=== PATIENT | female | born 1980 | race Caucasian/White ===

== ENCOUNTER 2016-11-29 10:02 | Emergency (ER) | payer SELFPAY ==
[2016-11-29] VITALS (7 sets, daily range): BP systolic 138–155; BP diastolic 57–95; PULSE 62–77; RESP 16–18; TEMP 97.8–98; O2SAT 99–100
[~2016-11-29] VITALS: Ht 160 cm; Wt 60.0 kg
[~2016-11-29 10:02] MED LIST: DARV PO
[2016-11-29] MEDS ORDERED: SODIUM CHLOR 0.9% 1000 ML INJ 1,000 ML IV ONE ×2 (10:47→13:00)
[2016-11-29] MEDS ORDERED: SODIUM CHLORIDE 0.9% FLUSH 10 ML FLUSH IVF PRN (11:00)
[2016-11-29 11:15] LABS: AUTOMATED NEUTROPHIL # 4.6 TH/MM3 (1.8-7.7); BASOPHIL # 0.1 TH/MM3 (0-0.2); BASOPHIL % 0.6 % (0.0-2.0); EOSINOPHIL # 0.1 TH/MM3 (0-0.4); EOSINOPHIL % 1.1 % (0.0-4.0); HEMATOCRIT 36.8 % (35.0-46.0); HEMO FLAGS DIFF FINAL; LYMPH % 35.2 % (9.0-44.0); LYMPHOCYTE # 2.9 TH/MM3 (1.0-4.8); MEAN CELL VOLUME 82.9 FL (80.0-100.0); MEAN CORPUSCULAR HEMOGLOBIN 28.2 PG (27.0-34.0); MONO % 7.2 % (0.0-8.0); NEUT % 55.9 % (16.0-70.0); PLATELET COUNT 231 TH/MM3 (150-450); RED BLOOD COUNT 4.43 MIL/MM3 (4.00-5.30); RED CELL DISTRIBUTION WIDTH 15.1 % (11.6-17.2); WHITE BLOOD COUNT 8.3 TH/MM3 (4.0-11.0)
[2016-11-29 11:25] LABS: PROTHROMBIN TIME - PATIENT 10.8 SEC (9.8-11.6)
[2016-11-29 11:31] LABS: ALT (GPT) 64 U/L (10-53); ANION GAP 8 MEQ/L (5-15); AST (GOT) 58 U/L (15-37); BICARBONATE 26.2 MEQ/L (21.0-32.0); BLOOD UREA NITROGEN 16 MG/DL (7-18); CHLORIDE 108 MEQ/L (98-107); GLOMERULAR FILTRATION RATE 90 ML/MIN (>89); MAGNESIUM 2.1 MG/DL (1.5-2.5); SODIUM (NA) 142 MEQ/L (136-145)
[2016-11-29 11:33] LABS: POTASSIUM 2.8 MEQ/L (3.5-5.1)
[2016-11-29 11:36] LABS: ALKALINE PHOSPHATASE 94 U/L (45-117); CREATINE KINASE 948 U/L (26-192); TOTAL BILIRUBIN ADULT 0.4 MG/DL (0.2-1.0)
[2016-11-29] MEDS ORDERED: POTASSIUM CHLORIDE 10 MEQ CONTROLLED RELEASE TAB PO ONE (11:45)
--- NOTE | 2016-11-29 11:51 | PD ---
HPI Chief Complaint: Altered Mental Status Time Seen by Provider: 10:50 Travel History International Travel<30 days: No Contact w/Intl Traveler<30days: No Traveled to known affect area: No History of Present Illness HPI Patient is a 36-year-old female brought to the emergency room by EMS for evaluation of altered mental status. As per EMS, patient was found in the bathroom of a hotel sleeping. Patient reports that for the past 3 days, been using IV methamphetamines. Patient reports that she went to eat with her friends fell asleep in the bathroom, patient unsure what happened. Patient denies any headache or dizziness, denies any chest pain or shortness of breath. Patient denies any suicidal or homicidal ideations at this time. [facility] Past Medical History Medical History: Denies Significant Hx ?: Unknown LMP: UNKNOWN Past Surgical History Surgical History: No Previous Surgery Social History Alcohol Use: Yes Tobacco Use: Yes Substance Use: Yes Allergies-Medications (Allergen,Severity, Reaction): Coded Allergies: No Known Allergies (Verified , 11/29/16) Reported Meds & Prescriptions Reported Meds & Active Scripts Active No Active Prescriptions or Reported Medications Review of Systems ROS Limitations: Altered Mental Status General / Constitutional: No: Fever Eyes: No: Visual changes HENT: No: Headaches Cardiovascular: No: Chest Pain or Discomfort Respiratory: No: Shortness of Breath Gastrointestinal: No: Abdominal Pain Genitourinary: No: Dysuria Musculoskeletal: No: Pain Skin: No Rash Neurologic: No: Weakness Psychiatric: No: Depression Endocrine: No: Polydipsia Hematologic/Lymphatic: No: Easy Bruising Physical Exam Narrative GENERAL: No acute distress SKIN: Focused skin assessment warm/dry. HEAD: Atraumatic. Normocephalic. EYES: Pupils equal and round. No scleral icterus. No injection or drainage. ENT: No nasal bleeding or discharge. Mucous membranes pink and moist. NECK: Trachea midline. No JVD. CARDIOVASCULAR: Regular rate and rhythm. No murmur appreciated. RESPIRATORY: No accessory muscle use. Clear to auscultation. Breath sounds equal bilaterally. GASTROINTESTINAL: Abdomen soft, non-tender, nondistended. Hepatic and splenic margins not palpable. MUSCULOSKELETAL: No obvious deformities. No clubbing. No cyanosis. No edema. Patient with track osborn to her bilateral ACs NEUROLOGICAL: Awake and alert. No obvious cranial nerve deficits. Motor grossly within normal limits. Normal speech. PSYCHIATRIC: Flat mood and affect Data Data Last Documented VS Vital Signs Date Time Temp Pulse Resp B/P (MAP) Pulse Ox O2 Delivery O2 Flow Rate FiO2 11/29/16 12:00 67 18 155/95 (115) 100 Nasal Cannula 2.00 11/29/16 10:05 97.8 Orders Orders Electrocardiogram (11/29/16 10:47) Complete Blood Count With Diff (11/29/16 10:47) Comprehensive Metabolic Panel (11/29/16 10:47) Magnesium (Mg) (11/29/16 10:47) Ckmb (Isoenzyme) Profile (11/29/16 10:47) Troponin I (11/29/16 10:47) Act Partial Throm Time (Ptt) (11/29/16 10:47) Prothrombin Time / Inr (Pt) (11/29/16 10:47) Chest, Single Ap (11/29/16 10:47) Blood Glucose (11/29/16 10:47) Ecg Monitoring (11/29/16 10:47) Iv Access Insert/Monitor (11/29/16 10:47) Oximetry (11/29/16 10:47) Sodium Chloride 0.9% Flush (Ns Flush) (11/29/16 11:00) Sodium Chlor 0.9% 1000 Ml Inj (Ns 1000 M (11/29/16 10:47) Drug Screen, Random Urine (11/29/16 10:47) Ct Brain W/O Iv Contrast(Rout) (11/29/16 11:13) CKMB (11/29/16 10:45) CKMB% (11/29/16 10:45) Potassium Chloride (Kcl) (11/29/16 11:45) Potassium Chlor 20 Meq Premix (Kcl 20 Me (11/29/16 11:45) Tylenol (Acetaminophen) (11/29/16 10:45) Alcohol (Ethanol) (11/29/16 10:45) Salicylates (Aspirin) (11/29/16 10:45) Sodium Chlor 0.9% 1000 Ml Inj (Ns 1000 M (11/29/16 13:00) Ckmb (Isoenzyme) Profile (11/29/16 12:58) Troponin I (11/29/16 12:58) CKMB (11/29/16 13:40) CKMB% (11/29/16 13:40) Labs Laboratory Tests Test 11/29/16 10:45 11/29/16 13:40 White Blood Count 8.3 TH/MM3 Red Blood Count 4.43 MIL/MM3 Hemoglobin 12.5 GM/DL Hematocrit 36.8 % Mean Corpuscular Volume 82.9 FL Mean Corpuscular Hemoglobin 28.2 PG Mean Corpuscular Hemoglobin Concent 34.0 % Red Cell Distribution Width 15.1 % Platelet Count 231 TH/MM3 Mean Platelet Volume 6.1 FL Neutrophils (%) (Auto) 55.9 % Lymphocytes (%) (Auto) 35.2 % Monocytes (%) (Auto) 7.2 % Eosinophils (%) (Auto) 1.1 % Basophils (%) (Auto) 0.6 % Neutrophils # (Auto) 4.6 TH/MM3 Lymphocytes # (Auto) 2.9 TH/MM3 Monocytes # (Auto) 0.6 TH/MM3 Eosinophils # (Auto) 0.1 TH/MM3 Basophils # (Auto) 0.1 TH/MM3 CBC Comment DIFF FINAL Differential Comment Prothrombin Time 10.8 SEC Prothromb Time International Ratio 1.0 RATIO Activated Partial Thromboplast Time 27.0 SEC Blood Urea Nitrogen 16 MG/DL Creatinine 0.73 MG/DL Random Glucose 92 MG/DL Total Protein 6.9 GM/DL Albumin 3.2 GM/DL Calcium Level 8.6 MG/DL Magnesium Level 2.1 MG/DL Alkaline Phosphatase 94 U/L Aspartate Amino Transf (AST/SGOT) 58 U/L Alanine Aminotransferase (ALT/SGPT) 64 U/L Total Bilirubin 0.4 MG/DL Sodium Level 142 MEQ/L Potassium Level 2.8 MEQ/L Chloride Level 108 MEQ/L Carbon Dioxide Level 26.2 MEQ/L Anion Gap 8 MEQ/L Estimat Glomerular Filtration Rate 90 ML/MIN Total Creatine Kinase 948 U/L 686 U/L Creatine Kinase MB 22.1 NG/ML 17.1 NG/ML Creatine Kinase MB % 2.3 % 2.5 % Troponin I LESS THAN 0.02 NG/ML LESS THAN 0.02 NG/ML Salicylates Level LESS THAN 1.7 MG/DL Acetaminophen Level LESS THAN 2.0 MCG/ML Ethyl Alcohol Level LESS THAN 3 MG/DL MDM Medical Decision Making Medical Screen Exam Complete: Yes Emergency Medical Condition: Yes Medical Record Reviewed: Yes Interpretation(s) EKG at 1101: Sinus bradycardia at 58 beats a minute, qt/qtc: 458/456, no acute st or t wave changes Vital Signs Date Time Temp Pulse Resp B/P (MAP) Pulse Ox O2 Delivery O2 Flow Rate FiO2 11/29/16 10:45 99 Room Air 11/29/16 10:05 Room Air 11/29/16 10:05 97.8 70 16 141/57 (85) 99 Differential Diagnosis Differential includes drug abuse, electrolyte abnormality, alcohol abuse Narrative Course Patient is a 36 year old female who presents to ER with EMS for evaluation of AMS. Patient is drowsy but alert and oriented x 3. Patient reports that she was on a drug binge for the past 3 days, reports using IV amphetamines. Patient denies suicidal or homicidal ideations, patient with no complaints at this time. Patient was placed on a cardiac care unit nurse upon arrival to the emergency room. Lab work including CT of the head ordered, drug screen, alcohol screen ordered. Vital Signs Date Time Temp Pulse Resp B/P (MAP) Pulse Ox O2 Delivery O2 Flow Rate FiO2 11/29/16 12:00 67 18 155/95 (115) 100 Nasal Cannula 2.00 11/29/16 11:00 62 16 138/78 (98) 99 Room Air 11/29/16 10:45 99 Room Air 11/29/16 10:05 Room Air 11/29/16 10:05 97.8 70 16 141/57 (85) 99 Laboratory Tests Test 11/29/16 10:45 11/29/16 13:40 White Blood Count 8.3 TH/MM3 (4.0-11.0) Red Blood Count 4.43 MIL/MM3 (4.00-5.30) Hemoglobin 12.5 GM/DL (11.6-15.3) Hematocrit 36.8 % (35.0-46.0) Mean Corpuscular Volume 82.9 FL (80.0-100.0) Mean Corpuscular Hemoglobin 28.2 PG (27.0-34.0) Mean Corpuscular Hemoglobin Concent 34.0 % (32.0-36.0) Red Cell Distribution Width 15.1 % (11.6-17.2) Platelet Count 231 TH/MM3 (150-450) Mean Platelet Volume 6.1 FL (7.0-11.0) Neutrophils (%) (Auto) 55.9 % (16.0-70.0) Lymphocytes (%) (Auto) 35.2 % (9.0-44.0) Monocytes (%) (Auto) 7.2 % (0.0-8.0) Eosinophils (%) (Auto) 1.1 % (0.0-4.0) Basophils (%) (Auto) 0.6 % (0.0-2.0) Neutrophils # (Auto) 4.6 TH/MM3 (1.8-7.7) Lymphocytes # (Auto) 2.9 TH/MM3 (1.0-4.8) Monocytes # (Auto) 0.6 TH/MM3 (0-0.9) Eosinophils # (Auto) 0.1 TH/MM3 (0-0.4) Basophils # (Auto) 0.1 TH/MM3 (0-0.2) CBC Comment DIFF FINAL Differential Comment Prothrombin Time 10.8 SEC (9.8-11.6) Prothromb Time International Ratio 1.0 RATIO Activated Partial Thromboplast Time 27.0 SEC (24.3-30.1) Blood Urea Nitrogen 16 MG/DL (7-18) Creatinine 0.73 MG/DL (0.50-1.00) Random Glucose 92 MG/DL (74-106) Total Protein 6.9 GM/DL (6.4-8.2) Albumin 3.2 GM/DL (3.4-5.0) Calcium Level 8.6 MG/DL (8.5-10.1) Magnesium Level 2.1 MG/DL (1.5-2.5) Alkaline Phosphatase 94 U/L (45-117) Aspartate Amino Transf (AST/SGOT) 58 U/L (15-37) Alanine Aminotransferase (ALT/SGPT) 64 U/L (10-53) Total Bilirubin 0.4 MG/DL (0.2-1.0) Sodium Level 142 MEQ/L (136-145) Potassium Level 2.8 MEQ/L (3.5-5.1) Chloride Level 108 MEQ/L (98-107) Carbon Dioxide Level 26.2 MEQ/L (21.0-32.0) Anion Gap 8 MEQ/L (5-15) Estimat Glomerular Filtration Rate 90 ML/MIN (>89) Total Creatine Kinase 948 U/L (26-192) 686 U/L (26-192) Creatine Kinase MB 22.1 NG/ML (0.5-3.6) 17.1 NG/ML (0.5-3.6) Creatine Kinase MB % 2.3 % (0.0-4.0) 2.5 % (0.0-4.0) Troponin I LESS THAN 0.02 NG/ML LESS THAN 0.02 NG/ML Salicylates Level LESS THAN 1.7 MG/DL Acetaminophen Level LESS THAN 2.0 MCG/ML Ethyl Alcohol Level LESS THAN 3 MG/DL (0-5) initial ckmb 22.1, repeat after IVF 17.1, ck total 948, repeat ck total 686. patient with most likely rhabdomyolysis from drug abuse and dehydration. Patient's symptoms most likely from drug abuse as patient does admit to using drugs for the past 72 hours. Patient refuses to provide urine sample at this time. Instructed patient to stop using drugs. All labs and studies as well as all findings reviewed with patient in detail. Diagnosis Primary Impression: Drug abuse Additional Impressions: Rhabdomyolysis Qualified Codes: M62.82 - Rhabdomyolysis Hypokalemia Patient Instructions: General Instructions Additional Instructions: Please stop using drugs Please follow up with your primary care doctor in 24-48 hours Return to ER if symptoms return Return to ER as needed Please drink plenty of fluids Scripts No Active Prescriptions or Reported Meds Disposition: 01 DISCHARGE HOME Condition: Stable Neha Dee DO Nov 29, 2016 11:51
[2016-11-29 11:59] LABS: ACETAMINOPHEN LESS THAN 2.0 MCG/ML (10.0-30.0); CKMB 22.1 NG/ML (0.5-3.6)
[2016-11-29 12:01] LABS: ALCOHOL LESS THAN 3 MG/DL (0-5)
[2016-11-29] MEDS: POTASSIUM CHLOR 20 MEQ PREMIX 100 ML IV SCH ×2 (12:10→13:51)
--- NOTE | 2016-11-29 12:54 | RADRPT ---
EXAM DATE/TIME: 11/29/2016 11:04 [facility] COMPARISON: No previous studies available for comparison. INDICATIONS : Palpitations MEDICAL HISTORY : None. SURGICAL HISTORY : None. ENCOUNTER: Initial ACUITY: 1 day PAIN SCORE: Non-responsive. LOCATION: chest FINDINGS: A single view of the chest demonstrates the lungs to be symmetrically aerated without evidence of mas s, infiltrate or effusion. The cardiomediastinal contours are unremarkable. Osseous structures are intact. CONCLUSION: No acute disease. Shaji Whittaker MD on November 29, 2016 at 12:53 Board Certified Radiologist. This report was verified electronically.
[2016-11-29 14:29] LABS: CREATINE KINASE 686 U/L (26-192)
[2016-11-29 14:41] LABS: CKMB 17.1 NG/ML (0.5-3.6)
--- NOTE | 2016-11-29 15:20 | RADRPT ---
EXAM DATE/TIME: 11/29/2016 14:41 [facility] COMPARISON: No previous studies available for comparison. INDICATIONS : Altered mental status. RADIATION DOSE: 56.35 CTDIvol (mGy) MEDICAL HISTORY : None SURGICAL HISTORY : None. ENCOUNTER: Initial ACUITY: 1 day PAIN SCALE: 0/10 LOCATION: cranial TECHNIQUE: Multiple contiguous axial images were obtained of the head. Using automated exposure control and adj ustment of the mA and/or kV according to patient size, radiation dose was kept as low as reasonably a chievable to obtain optimal diagnostic quality images. DICOM format image data is available electro nically for review and comparison. FINDINGS: CEREBRUM: The ventricles are normal for age. No evidence of midline shift, mass lesion, hemorrhage or acute in farction. No extra-axial fluid collections are seen. POSTERIOR FOSSA: The cerebellum and brainstem are intact. The 4th ventricle is midline. The cerebellopontine angle i s unremarkable. EXTRACRANIAL: Mild partial opacification of the ethmoid sinuses. SKULL: The calvaria is intact. No evidence of skull fracture. CONCLUSION: Mild ethmoid sinus disease. No acute intracranial findings. Thong Barreto MD on November 29, 2016 at 15:17 Board Certified Radiologist. This report was verified electronically.
--- NOTE | 2016-11-29 16:51 | EKG ---
Date Performed: 11/29/2016 Time Performed: 11:01:36 PTAGE: 36 years EKG: SINUS BRADYCARDIA POSSIBLE RIGHT VENTRICULAR CONDUCTION DELAY BORDERLINE ECG NO PREVIOUS TRACING DOCTOR: Sayda Canchola Interpretating Date/Time 11/29/2016 16:49:57
== END 2016-11-29 20:30 | disposition home or self-care (01) ==
LOC: NEPD 10:02
DX: F19.10 Other psychoactive substance abuse, uncomplicated (principal); M62.82 Rhabdomyolysis; E87.6 Hypokalemia; R00.1 Bradycardia, unspecified; R94.31 Abnormal electrocardiogram [ECG] [EKG]; Z72.0 Tobacco use
CPT/HCPCS: 70450; 71010; 80053; 80307; 82550; 82552; 83735; 84484; 85025; 85610; 85730; 93005; 96361; 96365; 96366; 96368; 99285; J3480; J7030

== ENCOUNTER 2017-05-17 01:21 | Emergency (ER) | payer SELFPAY ==
[2017-05-17] VITALS (7 sets, daily range): BP systolic 122–173; BP diastolic 66–101; PULSE 81–140; RESP 14–20; TEMP 98.1; O2SAT 91–98
[~2017-05-17] VITALS: Ht 162.6 cm; Wt 60.0 kg
[2017-05-17] MEDS ORDERED: SODIUM CHLOR 0.9% 1000 ML INJ 1,000 ML IV SCH (01:36)
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
[2017-05-17 01:59] LABS: AUTOMATED NEUTROPHIL # 9.6 TH/MM3 (1.8-7.7); BASOPHIL # 0.1 TH/MM3 (0-0.2); BASOPHIL % 0.7 % (0.0-2.0); EOSINOPHIL # 0.1 TH/MM3 (0-0.4); EOSINOPHIL % 0.8 % (0.0-4.0); HEMATOCRIT 36.8 % (35.0-46.0); HEMOGLOBIN 12.7 GM/DL (11.6-15.3); LYMPH % 21.2 % (9.0-44.0); LYMPHOCYTE # 2.9 TH/MM3 (1.0-4.8); MEAN CELL VOLUME 81.6 FL (80.0-100.0); MEAN CORPUSCULAR HEMOGLOBIN 28.1 PG (27.0-34.0); MEAN CORPUSCULAR HGB CONC 34.4 % (32.0-36.0); MEAN PLATELET VOLUME 6.3 FL (7.0-11.0); NEUT % 70.3 % (16.0-70.0); PLATELET COUNT 245 TH/MM3 (150-450); RED BLOOD COUNT 4.51 MIL/MM3 (4.00-5.30); RED CELL DISTRIBUTION WIDTH 19.6 % (11.6-17.2); WHITE BLOOD COUNT 13.6 TH/MM3 (4.0-11.0)
[2017-05-17 02:14] LABS: ALBUMIN 4.4 GM/DL (3.4-5.0); ALT (GPT) 41 U/L (10-53); AST (GOT) 38 U/L (15-37); BICARBONATE 26.3 MEQ/L (21.0-32.0); BLOOD UREA NITROGEN 21 MG/DL (7-18); CALCIUM 8.5 MG/DL (8.5-10.1); CHLORIDE 107 MEQ/L (98-107); CREATININE 1.01 MG/DL (0.50-1.00); GLOMERULAR FILTRATION RATE 62 ML/MIN (>89); GLUCOSE,RANDOM 78 MG/DL (74-106); SODIUM (NA) 144 MEQ/L (136-145)
[2017-05-17 02:15] LABS: ALKALINE PHOSPHATASE 95 U/L (45-117); TOTAL BILIRUBIN ADULT 0.8 MG/DL (0.2-1.0); TOTAL PROTEIN 8.4 GM/DL (6.4-8.2)
[2017-05-17 02:33] LABS: ACETAMINOPHEN LESS THAN 2.0 MCG/ML (10.0-30.0)
--- NOTE | 2017-05-17 03:34 | RADRPT ---
EXAM DATE/TIME: 05/17/2017 03:00 [facility] COMPARISON: CT BRAIN W/O CONTRAST, November 29, 2016, 14:41. INDICATIONS : Altered mental status. Possible overdose. RADIATION DOSE: 56.35 CTDIvol (mGy) MEDICAL HISTORY : None SURGICAL HISTORY : None. ENCOUNTER: Initial ACUITY: 1 day PAIN SCALE: Non-responsive LOCATION: cranial TECHNIQUE: Multiple contiguous axial images were obtained of the head. Using automated exposure control and adj ustment of the mA and/or kV according to patient size, radiation dose was kept as low as reasonably a chievable to obtain optimal diagnostic quality images. DICOM format image data is available electro nically for review and comparison. FINDINGS: CEREBRUM: The ventricles are normal for age. No evidence of midline shift, mass lesion, hemorrhage or acute in farction. No extra-axial fluid collections are seen. POSTERIOR FOSSA: The cerebellum and brainstem are intact. The 4th ventricle is midline. The cerebellopontine angle i s unremarkable. EXTRACRANIAL: The visualized portion of the orbits is intact. SKULL: The calvaria is intact. No evidence of skull fracture. CONCLUSION: Negative exam. Perry Ward MD on May 17, 2017 at 3:32 Board Certified Radiologist. This report was verified electronically.
[2017-05-17] MEDS ORDERED: POTASSIUM CHLORIDE 20 MEQ CONTROLLED RELEASE TAB PO ONE (04:15)
--- NOTE | 2017-05-18 17:45 | EKG ---
Date Performed: 05/17/2017 Time Performed: 02:06:31 PTAGE: 37 years EKG: SINUS TACHYCARDIA WITHIN NORMAL LIMITS Normal ECG Compared to PREVIOUS TRACING , the heart rate is faster otherwise no significant change. PREVIOUS TRA CIN11/29/2016 11.01 DOCTOR: Reyes Thakkar Interpretating Date/Time 05/18/2017 17:43:38
== END 2017-05-17 10:50 | disposition home or self-care (01) ==
LOC: NEPD 01:21
DX: F19.10 Other psychoactive substance abuse, uncomplicated (principal); R00.0 Tachycardia, unspecified; Z72.0 Tobacco use
CPT/HCPCS: 70450; 80053; 80307; 82550; 82552; 84703; 85025; 93005; 96360; 99285; J7030; P9612